=== PATIENT | male | born 1965 | race Caucasian/White ===

== ENCOUNTER 2018-10-29 13:44 | Emergency (ER) | payer OTHER ==
[~2018-10-29] VITALS: Ht 182.9 cm; Wt 102.1 kg
[2018-10-29] MEDS ORDERED: CELEXA10 MG PO (13:54)
[2018-10-29 14:29] LABS: ABSOLUTE BASOPHILS 0.1 thou/uL (0.0-0.2); ABSOLUTE EOSINOPHILS 0.1 thou/uL (0.0-0.7); ABSOLUTE LYMPHOCYTES 1.8 thou/uL (0.8-5.3); ABSOLUTE MONOCYTES 0.3 thou/uL (0.0-1.2); ABSOLUTE NEUTROPHILS 2.4 thou/uL (1.6-8.1); BASOPHILS 1.2 %; HEMATOCRIT 40.2 % (42.0-52.0); HEMOGLOBIN 13.8 gm/dL (14.0-18.0); LYMPHOCYTES 39.5 %; MCH 30.6 pg (26.0-34.0); MCHC 34.3 g/dL (28.0-37.0); MCV 89.3 fL (80.0-100.0); MONOCYTES 5.4 %; NUCLEATED RBCS 0 /100WBC; PLATELET COUNT* 224 thou/uL (150-400); POLYS 51.9 %; RDW-CV 13.3 % (10.5-14.5); WBC 4.7 thou/uL (4.0-11.0)
[2018-10-29 14:43] LABS: ALBUMIN 3.9 g/dL (3.4-5.0); CALCIUM 8.9 mg/dL (8.5-10.1); CREATININE 0.9 mg/dL (0.6-1.3); POTASSIUM 4.1 mmol/L (3.5-5.1); TOTAL BILIRUBIN 0.4 mg/dL (<0.1-1.0); TOTAL PROTEIN 7.4 g/dL (6.4-8.2); URIC ACID* 7.2 mg/dL (2.6-7.2)
[2018-10-29] MEDS ORDERED: KEFLEX500 M1 PO (14:59)
[2018-10-29 15:17] VITALS: BP 156/89
[2018-10-29 15:37] LABS: ESR (SEDRATE) 4 mm/hr (0-20)
== END 2018-10-29 15:15 | disposition home or self-care (01) ==
LOC: M.ERS 13:44
PROVIDERS: Physician Assistant
DX: M70.41 Prepatellar bursitis, right knee (principal); Y93.89 Activity, other specified